=== PATIENT | male | born 1965 | race Caucasian/White ===

== ENCOUNTER 2017-04-20 10:22 | Emergency (ER) | payer MEDICARE, OTHER ==
[2017-04-20 12:07] LABS: HEMOGLOBIN 14.3 gm/dl (14.0-17.5); RED BLOOD COUNT 4.65 M/UL (4.20-5.50); WHITE BLOOD COUNT 7.1 K/UL (4.5-11.0)
[2017-04-20 12:28] LABS: BUN/CREATININE RATIO 9 (0-10)
== END 2017-04-20 16:26 | disposition home or self-care (01) ==
LOC: ER1 10:22
PROVIDERS: Specialist/Technologist Athletic Trainer
DX: J20.9 Acute bronchitis, unspecified (principal); I10 Essential (primary) hypertension; Z87.891 Personal history of nicotine dependence
CPT/HCPCS: 36415; 36600; 71010; 80053; 82550; 82553; 82803; 83874; 83880; 84484; 85025; 93005; 99285; J7050

== ENCOUNTER → 2017-05-01 | Outpatient (CLI) | payer MEDICARE, OTHER | LOC: KOH-I 15:08 | DX: R06.02 Shortness of breath (principal); Z77.22 Contact with and (suspected) exposure to environmental tobacco smoke (acute) (chronic) | CPT/HCPCS: 71260; Q9962 ==

== ENCOUNTER 2020-11-16 06:07 | Emergency (ER) | payer MEDICARE, OTHER ==
[~2020-11-16 06:07] MED LIST: ASPIRIN CHEWABL81 MG PO; BACTROBAN OINT22 GM EXT; CLEOCIN HCL150 MG PO; CLEOCIN HCL300 MG PO; NORFLEX 100 MG100 MG PO; Voltaren Gel 1% TOP
[2020-11-16 06:34] LABS: HEMOGLOBIN 12.4 gm/dl (14.0-17.5); RED BLOOD COUNT 3.94 M/UL (4.20-5.50); WHITE BLOOD COUNT 6.7 K/UL (4.5-11.0)
[2020-11-16 07:03] LABS: BUN/CREATININE RATIO 17 (0-10)
== END 2020-11-16 07:35 | disposition left against medical advice (07) ==
LOC: ER1 06:07
PROVIDERS: Family Medicine
DX: R07.9 Chest pain, unspecified (principal); R91.8 Other nonspecific abnormal finding of lung field; I10 Essential (primary) hypertension; F17.200 Nicotine dependence, unspecified, uncomplicated; Z53.20 Procedure and treatment not carried out because of patient's decision for unspecified reasons
CPT/HCPCS: 71045; 80053; 80307; 82150; 82550; 82553; 83690; 84484; 85025; 93005; 99285; G0480

== ENCOUNTER 2020-12-03 05:18 | Emergency (ER) | payer MEDICARE, OTHER ==
[2020-12-03 05:49] LABS: HEMOGLOBIN 12.6 gm/dl (14.0-17.5); RED BLOOD COUNT 4.14 M/UL (4.20-5.50); WHITE BLOOD COUNT 6.2 K/UL (4.5-11.0)
[2020-12-03 06:26] LABS: BUN/CREATININE RATIO 13 (0-10)
[2020-12-03] MEDS ORDERED: NITROSTAT0.4 MG SL (09:36)
[2020-12-03] MEDS ORDERED: ASPIRIN CHEWABL81 MG PO (09:36)
== END 2020-12-03 10:09 | disposition home or self-care (01) ==
LOC: ER1 05:18 → CDU 08:42 → ER1 08:42
DX: R07.9 Chest pain, unspecified (principal); I12.9 Hypertensive chronic kidney disease with stage 1 through stage 4 chronic kidney disease, or unspecified chronic kidney disease; N18.9 Chronic kidney disease, unspecified; D69.6 Thrombocytopenia, unspecified; R06.02 Shortness of breath; Z20.822 Contact with and (suspected) exposure to COVID-19
CPT/HCPCS: 71045; 80053; 82550; 82553; 83880; 84484; 85025; 93005; 99285; U0002

== ENCOUNTER 2020-12-03 21:21 | Emergency (ER) | payer MEDICARE, OTHER ==
[~2020-12-03 21:21] MED LIST changes: +NITROSTAT0.4 MG SL
[2020-12-03 23:03] LABS: HEMOGLOBIN 13.2 gm/dl (14.0-17.5); RED BLOOD COUNT 4.24 M/UL (4.20-5.50); WHITE BLOOD COUNT 6.8 K/UL (4.5-11.0)
== END 2020-12-04 03:25 | disposition home or self-care (01) ==
LOC: ER1 21:21
PROVIDERS: Emergency Medicine
DX: I13.0 Hypertensive heart and chronic kidney disease with heart failure and stage 1 through stage 4 chronic kidney disease, or unspecified chronic kidney disease (principal); N18.9 Chronic kidney disease, unspecified; I50.9 Heart failure, unspecified; Z87.891 Personal history of nicotine dependence
CPT/HCPCS: 71045; 80053; 81001; 83690; 83880; 84484; 85025; 85610; 85730; 93005; 96374; 99284; J1940

== ENCOUNTER → 2020-12-04 | Outpatient (CLI) | payer MEDICARE, OTHER ==
[~2020-12-04] MED LIST changes: +BACTRIM DS TAB1 EACH PO; +FLOMAX 0.4 MG0.4 MG PO; +IBUPROFEN600 MG PO; +MIRALAX17 GM PO; +SUBOXONE 8 MG-1 EACH SL; +ZYVOX600 MG PO
== END ==
LOC: KOH-I 12:26
DX: J18.1 Lobar pneumonia, unspecified organism (principal)
CPT/HCPCS: 71046

== ENCOUNTER 2021-01-08 12:03 | Emergency (ER) | payer MEDICARE, OTHER ==
[~2021-01-08 12:03] MED LIST changes: -BACTRIM DS TAB1 EACH PO; -FLOMAX 0.4 MG0.4 MG PO; -IBUPROFEN600 MG PO; -MIRALAX17 GM PO; -SUBOXONE 8 MG-1 EACH SL; -ZYVOX600 MG PO
[2021-01-08 12:27] LABS: HEMOGLOBIN 12.9 gm/dl (14.0-17.5); RED BLOOD COUNT 4.11 M/UL (4.20-5.50)
[2021-01-08] MEDS ORDERED: IBUPROFEN600 MG PO (16:05)
== END 2021-01-08 16:28 | disposition home or self-care (01) ==
LOC: ER1 12:03
PROVIDERS: Internal Medicine
DX: R07.9 Chest pain, unspecified (principal); I11.0 Hypertensive heart disease with heart failure; I50.9 Heart failure, unspecified; F17.220 Nicotine dependence, chewing tobacco, uncomplicated; F15.90 Other stimulant use, unspecified, uncomplicated
CPT/HCPCS: 36415; 71045; 80053; 80307; 82550; 82553; 84484; 85025; 93005; 96374; 99285; J1885

== ENCOUNTER 2021-02-14 20:51 | Emergency (ER) | payer MEDICARE, OTHER ==
[~2021-02-14 20:51] MED LIST changes: +IBUPROFEN600 MG PO
[2021-02-14 22:52] LABS: HEMOGLOBIN 12.9 gm/dl (14.0-17.5); RED BLOOD COUNT 4.06 M/UL (4.20-5.50)
[2021-02-14 23:14] LABS: BUN/CREATININE RATIO 15 (0-10)
[2021-02-15] MEDS ORDERED: FLOMAX 0.4 MG0.4 MG PO (01:54)
== END 2021-02-15 02:35 | disposition home or self-care (01) ==
LOC: ER1 20:51
PROVIDERS: Emergency Medicine
DX: N13.2 Hydronephrosis with renal and ureteral calculous obstruction (principal); R07.9 Chest pain, unspecified; N32.89 Other specified disorders of bladder; I12.0 Hypertensive chronic kidney disease with stage 5 chronic kidney disease or end stage renal disease; N18.6 End stage renal disease; F17.210 Nicotine dependence, cigarettes, uncomplicated
CPT/HCPCS: 71045; 80053; 80307; 81001; 82550; 82553; 83605; 83690; 83874; 84484; 85025; 87086; 93005; 99285

== ENCOUNTER 2021-02-21 15:51 | Inpatient (IN) | payer MEDICARE, OTHER ==
[~2021-02-21] VITALS: Ht 180.3 cm; Wt 95.3 kg
[~2021-02-21 15:51] MED LIST changes: +FLOMAX 0.4 MG0.4 MG PO
[2021-02-21 16:24] LABS: HEMOGLOBIN 13.2 gm/dl (14.0-17.5); RED BLOOD COUNT 4.12 M/UL (4.20-5.50); WHITE BLOOD COUNT 10.4 K/UL (4.5-11.0)
[2021-02-21] MEDS ORDERED: SUBOXONE 8 MG-1 EACH SL (22:10)
[2021-02-21] MEDS ORDERED: FLOMAX 0.4 MG0.4 MG PO (22:11)
[2021-02-22 03:35] LABS: HEMOGLOBIN 12.6 gm/dl (14.0-17.5); RED BLOOD COUNT 4.03 M/UL (4.20-5.50)
[2021-02-22 04:08] LABS: WHITE BLOOD COUNT 7.7 K/UL (4.5-11.0)
[2021-02-23 04:25] LABS: HEMOGLOBIN 12.6 gm/dl (14.0-17.5); RED BLOOD COUNT 4.03 M/UL (4.20-5.50); WHITE BLOOD COUNT 7.3 K/UL (4.5-11.0)
[2021-02-24 06:04] LABS: HEMOGLOBIN 12.8 gm/dl (14.0-17.5); RED BLOOD COUNT 4.1 M/UL (4.20-5.50); WHITE BLOOD COUNT 6.8 K/UL (4.5-11.0)
--- NOTE | 2021-02-24 06:47 | NUR ---
yung smalls in pharmcay, hold [id number] vanco dose
[2021-02-24] MEDS ORDERED: BACTRIM DS TAB1 EACH PO (11:25)
[2021-02-24] MEDS ORDERED: ZYVOX600 MG PO (11:31)
== END 2021-02-24 14:34 | disposition home or self-care (01) | DRG 603 ==
LOC: ER1 15:51 → CDU 20:10 → M/S 20:10 → CDU 23:30 → M/S 23:31
PROVIDERS: Emergency Medicine; Physician Assistant; ADMIT Internal Medicine
DX: L03.114 Cellulitis of left upper limb (principal); F11.20 Opioid dependence, uncomplicated; I12.9 Hypertensive chronic kidney disease with stage 1 through stage 4 chronic kidney disease, or unspecified chronic kidney disease; Z20.822 Contact with and (suspected) exposure to COVID-19; N18.30 Chronic kidney disease, stage 3 unspecified; F19.10 Other psychoactive substance abuse, uncomplicated; N40.0 Benign prostatic hyperplasia without lower urinary tract symptoms; N28.9 Disorder of kidney and ureter, unspecified
CPT/HCPCS: 36415; 71045; 73201; 80048; 80053; 80202; 82550; 82553; 83735; 83874; 83880; 84100; 84484; 85025; 85379; 85610; 85652; 85730; 86140; 93005; 93971; 96372; 99285; J0692; J1644; J2270; J3370; J7050; J7070; Q9967; U0002

== ENCOUNTER 2021-05-02 03:19 | Emergency (ER) | payer MEDICARE, OTHER ==
[~2021-05-02 03:19] MED LIST changes: +BACTRIM DS TAB1 EACH PO; +SUBOXONE 8 MG-1 EACH SL; +ZYVOX600 MG PO
[2021-05-02 03:57] LABS: HEMOGLOBIN 13.4 gm/dl (14.0-17.5); RED BLOOD COUNT 4.32 M/UL (4.20-5.50)
[2021-05-02 04:20] LABS: BUN/CREATININE RATIO 12 (0-10)
[2021-05-02] MEDS ORDERED: MIRALAX17 GM PO (05:55)
== END 2021-05-02 06:03 | disposition home or self-care (01) ==
LOC: ER1 03:19
PROVIDERS: Family Medicine
DX: N18.9 Chronic kidney disease, unspecified (principal); K59.00 Constipation, unspecified; E86.0 Dehydration
CPT/HCPCS: 71045; 80053; 81001; 82550; 82553; 83690; 83735; 83874; 84439; 84443; 84484; 85025; 93005; 99285

== ENCOUNTER 2021-06-15 18:38 | Emergency (ER) | payer MEDICARE, OTHER ==
[~2021-06-15 18:38] MED LIST changes: +MIRALAX17 GM PO
== END 2021-06-15 20:24 | disposition left against medical advice (07) ==
LOC: ER1 18:38
DX: Z53.21 Procedure and treatment not carried out due to patient leaving prior to being seen by health care provider (principal)

== ENCOUNTER 2021-06-17 12:36 | Emergency (ER) | payer MEDICARE, OTHER | END 2021-06-17 15:05 | disposition home or self-care (01) | LOC: ER1 12:36 | DX: R06.02 Shortness of breath (principal); R07.9 Chest pain, unspecified; I12.9 Hypertensive chronic kidney disease with stage 1 through stage 4 chronic kidney disease, or unspecified chronic kidney disease; N18.9 Chronic kidney disease, unspecified | CPT/HCPCS: 71045; 99284 ==

== ENCOUNTER 2021-09-18 12:15 | Emergency (ER) | payer MEDICARE, OTHER ==
[2021-09-18 13:42] LABS: HEMOGLOBIN 12.7 gm/dl (14.0-17.5); RED BLOOD COUNT 4.03 M/UL (4.20-5.50); WHITE BLOOD COUNT 5.7 K/UL (4.5-11.0)
[2021-09-18 14:06] LABS: BUN/CREATININE RATIO 8 (0-10)
== END 2021-09-18 17:35 | disposition short-term general hospital (02) ==
LOC: ER1 12:15
PROVIDERS: Emergency Medicine
DX: N13.30 Unspecified hydronephrosis (principal); M54.9 Dorsalgia, unspecified; R33.9 Retention of urine, unspecified; M47.816 Spondylosis without myelopathy or radiculopathy, lumbar region; M48.061 Spinal stenosis, lumbar region without neurogenic claudication; I12.9 Hypertensive chronic kidney disease with stage 1 through stage 4 chronic kidney disease, or unspecified chronic kidney disease; N18.9 Chronic kidney disease, unspecified; Z20.822 Contact with and (suspected) exposure to COVID-19
CPT/HCPCS: 71045; 72131; 80053; 81001; 82550; 82553; 83874; 83880; 84484; 85025; 85652; 86140; 93005; 96374; 96375; 99284; J2270; J2405; U0002

== ENCOUNTER 2022-03-03 22:33 | Emergency (ER) | payer MEDICARE, OTHER ==
[~2022-03-03 22:33] MED LIST changes: +CITALOPRAM HBR10 MG PO; +DILTIAZEM 24HR180 M1 PO; +FINASTERIDE5 MG PO; +FOLIC ACID 1 MG1 MG PO; +HYZAAR 50-12.51 EACH PO; +LACTULOSE10 GM/151 PO; +LOSARTAN-HCTZ1 EAC2 PO; +SENOKOT-S TABL1 EACH PO; +THERAGRAN M TAB1 EA PO; +VITAMIN B-1100 M1 PO
[2022-03-03 23:09] LABS: HEMOGLOBIN 12.3 gm/dl (14.0-17.5); RED BLOOD COUNT 4.07 M/UL (4.20-5.50); WHITE BLOOD COUNT 7.2 K/UL (4.5-11.0)
== END 2022-03-04 04:48 | disposition home or self-care (01) ==
LOC: ER1 22:33
PROVIDERS: Physician Assistant Medical
DX: R07.9 Chest pain, unspecified (principal); R06.00 Dyspnea, unspecified; N18.9 Chronic kidney disease, unspecified; N40.1 Benign prostatic hyperplasia with lower urinary tract symptoms; R33.8 Other retention of urine
CPT/HCPCS: 51702; 71045; 80053; 81001; 82550; 82553; 84484; 85025; 93005; 99285

== ENCOUNTER 2022-04-28 22:11 | Emergency (ER) | payer MEDICARE, OTHER ==
[2022-04-28] MEDS ORDERED: AMOX TR-K CLV1 EAC4 PO (23:36)
== END 2022-04-29 00:07 | disposition home or self-care (01) ==
LOC: ER1 22:11
DX: S61.452A Open bite of left hand, initial encounter (principal); S61.451A Open bite of right hand, initial encounter; M25.511 Pain in right shoulder; R00.0 Tachycardia, unspecified; I10 Essential (primary) hypertension; W54.0XXA Bitten by dog, initial encounter; W19.XXXA Unspecified fall, initial encounter; Z23 Encounter for immunization
CPT/HCPCS: 73030; 73130; 90471; 90715; 99283

== ENCOUNTER 2022-06-24 15:38 | Emergency (ER) | payer MEDICARE, OTHER ==
[~2022-06-24 15:38] MED LIST changes: +AMOX TR-K CLV1 EAC4 PO
[2022-06-24 16:03] LABS: HEMOGLOBIN 13.6 gm/dl (14.0-17.5); RED BLOOD COUNT 4.36 M/UL (4.20-5.50); WHITE BLOOD COUNT 9.2 K/UL (4.5-11.0)
[2022-06-24 16:33] LABS: BUN/CREATININE RATIO 10 (0-10)
== END 2022-06-24 20:03 | disposition home or self-care (01) ==
LOC: ER1 15:38
PROVIDERS: Nurse Practitioner
DX: R07.89 Other chest pain (principal); R06.02 Shortness of breath; F17.220 Nicotine dependence, chewing tobacco, uncomplicated; I50.9 Heart failure, unspecified
CPT/HCPCS: 71045; 80053; 81001; 82550; 82553; 84484; 85025; 85379; 93005; 99285; Q9967

== ENCOUNTER 2022-08-10 12:14 | Emergency (ER) | payer MEDICARE, OTHER ==
[2022-08-10 12:53] LABS: HEMOGLOBIN 13.2 gm/dl (14.0-17.5); RED BLOOD COUNT 4.25 M/UL (4.20-5.50); WHITE BLOOD COUNT 5.7 K/UL (4.5-11.0)
== END 2022-08-10 17:45 | disposition home or self-care (01) ==
LOC: ER1 12:14
PROVIDERS: Emergency Medicine; Physician Assistant
DX: N17.9 Acute kidney failure, unspecified (principal); R33.9 Retention of urine, unspecified; I10 Essential (primary) hypertension; F17.220 Nicotine dependence, chewing tobacco, uncomplicated; Z88.8 Allergy status to other drugs, medicaments and biological substances
CPT/HCPCS: 51701; 80053; 80307; 81001; 82550; 82553; 84484; 85025; 93005; 99283

== ENCOUNTER 2022-08-11 12:26 | Emergency (ER) | payer MEDICARE, OTHER ==
[2022-08-12] MEDS ORDERED: MACROBID 100 M100 MG PO (23:38)
== END 2022-08-11 15:28 | disposition left against medical advice (07) ==
LOC: ER1 12:26
DX: Z53.21 Procedure and treatment not carried out due to patient leaving prior to being seen by health care provider (principal)

== ENCOUNTER 2022-08-12 19:36 | Emergency (ER) | payer OTHER ==
[2022-08-12 22:22] LABS: HEMOGLOBIN 13.3 gm/dl (14.0-17.5); RED BLOOD COUNT 4.34 M/UL (4.20-5.50)
[2022-08-12] MEDS ORDERED: MACROBID 100 M100 MG PO (23:38)
== END 2022-08-12 23:36 | disposition home or self-care (01) ==
LOC: ER1 19:36
PROVIDERS: Physician Assistant
DX: Z46.6 Encounter for fitting and adjustment of urinary device (principal); N39.0 Urinary tract infection, site not specified; N28.9 Disorder of kidney and ureter, unspecified; R73.9 Hyperglycemia, unspecified; I10 Essential (primary) hypertension
CPT/HCPCS: 80053; 81001; 85025; 99283